=== PATIENT | female | born 1950 | race Caucasian/White ===

== ENCOUNTER → 2016-07-15 | Outpatient (CLI) | payer MEDICARE, OTHER ==
[~2016-07-15] MED LIST: ASPI-515 PO; LISI-167 PO; [UNRECOGNIZED DRUG - OTHER] PO
[2016-07-15 10:13] LABS: ASPARTATE AMINO TRANSFERASE 17 U/L (15-37); BLOOD UREA NITROGEN 14 mg/dL (7-18)
== END | disposition home or self-care (01) ==
LOC: STAR 08:28
PROVIDERS: ATTEND Orthopaedic Surgery
DX: Z01.812 Encounter for preprocedural laboratory examination (principal); M17.12 Unilateral primary osteoarthritis, left knee; M17.11 Unilateral primary osteoarthritis, right knee
CPT/HCPCS: 36415; 80053; 81003; 85025; 87081

== ENCOUNTER → 2016-07-15 | Outpatient (CLI) | payer MEDICARE, OTHER | END | disposition home or self-care (01) | LOC: LAB 09:43 | PROVIDERS: ATTEND Internal Medicine | DX: I10 Essential (primary) hypertension (principal); E03.9 Hypothyroidism, unspecified; N39.0 Urinary tract infection, site not specified; E55.9 Vitamin D deficiency, unspecified; R23.3 Spontaneous ecchymoses | CPT/HCPCS: 36415; 71020; 82043; 82306; 84439; 84443; 84480; 85610; 85730; 87086 ==

== ENCOUNTER 2016-07-20 06:21 | Inpatient (IN) | payer MEDICARE, OTHER ==
[~2016-07-20] VITALS: Ht 167.6 cm; Wt 75.7 kg
[2016-07-20] MEDS ORDERED: TRANEXAMIC ACID 100 MG/ML, 10ML ONE (06:42)
[2016-07-20] MEDS ORDERED: EPINEPHRINE 1 MG/ML, 1ML ONE (06:42)
[2016-07-20] MEDS ORDERED: ROPIvacaine/PF 0.2%, 20 ML ONE (06:42)
[2016-07-20] MEDS ORDERED: KETOROLAC 60 MG/2 ML ONE (06:42)
[2016-07-20] MEDS ORDERED: SODIUM CHLORIDE 0.9% 50 ML ONE (06:42)
[2016-07-20] MEDS ORDERED: EZET10TA3 PO (07:07)
[2016-07-20] MEDS ORDERED: TRAMADOL PO (07:07)
[2016-07-20 07:08] VITALS: BP 146/84
[2016-07-20] MEDS ORDERED: LACTATED RINGERS 1,000 ML IV SCH (07:14)
[2016-07-20] MEDS ORDERED: ROPIvacaine/PF 0.5%, 20 ML ONE (07:59)
[2016-07-20] MEDS ORDERED: MIDAZOLAM 1 MG/ML, 2ML ONE (08:03)
[2016-07-20] MEDS ORDERED: ONDANSETRON 2MG/ML, 2ML ONE (09:03)
[2016-07-20] MEDS ORDERED: CEFAZOLIN 1,000 MG ONE (09:03)
[2016-07-20] MEDS ORDERED: PROPOFOL 10 MG/ML, 50ML ONE (09:03)
[2016-07-20] MEDS ORDERED: PHENYLEPHRINE 10 MG/ML ONE (09:03)
[2016-07-20] MEDS ORDERED: DEXAMETHASONE 4 MG/ML, 1ML ONE (09:03)
[2016-07-20] MEDS ORDERED: METOCLOPRAMIDE 5 MG/ML, 2ML IV PRN (10:00)
[2016-07-20] MEDS ORDERED: ACETAMINOPHEN 325 MG TABLET PO PRN (10:00)
[2016-07-20] MEDS ORDERED: OXYcodone 5 MG/5 ML ORAL.SOL UDC PO PRN (10:00)
[2016-07-20] MEDS ORDERED: HYDROmorphone 1 MG/ML, 1ML IV PRN ×2 (10:00→11:00)
[2016-07-20] MEDS ORDERED: FENTANYL PF 100 MCG/2ML IV PRN (10:00)
[2016-07-20] MEDS ORDERED: SENNA/DOCUSATE TABLET PO PRN (11:00)
[2016-07-20] MEDS: TAMSULOSIN 0.4 MG CAP.ER.24H PO SCH (11:00)
[2016-07-20] MEDS ORDERED: PROMETHAZINE 12.5 MG SUPP PR PRN (11:00)
[2016-07-20] MEDS: OXYcodone IR 5MG TABLET PO SCH ×4 (11:00→23:00)
[2016-07-20] MEDS ORDERED: ONDANSETRON 4 MG TABLET PO PRN (11:00)
[2016-07-20] MEDS ORDERED: MAGNESIUM HYDROXIDE 8%, 30ML UDC PO PRN (11:00)
[2016-07-20] MEDS ORDERED: BISACODYL 10 MG SUPP PR PRN (11:00)
[2016-07-20] MEDS ORDERED: PROMETHAZINE 25 MG/ML, 1ML IM PRN (11:00)
[2016-07-20] MEDS ORDERED: HYDROcodone/APAP 10/325 MG TABLET PO PRN (11:00)
[2016-07-20] MEDS ORDERED: DIPHENHYDRAMINE 25 MG CAPSULE PO PRN (11:00)
[2016-07-20] MEDS ORDERED: ONDANSETRON 2MG/ML, 2ML IV PRN (11:00)
[2016-07-20] MEDS ORDERED: OXYcodone IR 5MG TABLET PO PRN (11:00)
[2016-07-20] MEDS ORDERED: ALUMINUM/MAG/SIMETHICONE 30 ML UDC PO PRN (11:00)
[2016-07-20] MEDS: ACETAMINOPHEN 650 MG/20.3 ML UDC PO SCH ×4 (11:00→23:00)
[2016-07-20] MEDS ORDERED: DIAZEPAM 5 MG TABLET PO PRN (11:00)
[2016-07-20] MEDS ORDERED: TRANEXAMIC ACID 1,000 MG in SODIUM CHLORIDE 0.9% 100 ML IVPB ONE (11:15)
[2016-07-20] MEDS ORDERED: SCOPOLAMINE PATCH, 1.5MG PATCH.TD72 TD SCH (13:00)
[2016-07-20] MEDS: D5%-0.45% NACL 1,000 ML IV SCH ×2 (13:06→18:00)
[2016-07-20 13:14] VITALS: BP 125/70
[2016-07-20] MEDS: CEFAZOLIN PMX 2GM/100ML 100 ML IVPB SCH (16:48)
[2016-07-20] MEDS: ASPIRIN 81 MG TABLET EC PO SCH (18:00)
[2016-07-20 19:00] VITALS: BP 134/72
[2016-07-20] MEDS ORDERED: ZOLPIDEM 5MG TABLET PO PRN (21:00)
[2016-07-20] MEDS ORDERED: EZETIMIBE 10 MG TABLET PO SCH (21:00)
[2016-07-20] MEDS: PREGABALIN 75 MG CAPSULE PO SCH (22:10)
[2016-07-20] MEDS: DOCUSATE 100 MG CAPSULE PO SCH (22:10)
[2016-07-21 00:03] VITALS: BP 115/64
[2016-07-21] MEDS: CEFAZOLIN PMX 2GM/100ML 100 ML IVPB SCH (00:52)
[2016-07-21] MEDS: D5%-0.45% NACL 1,000 ML IV SCH ×2 (02:44→10:44)
[2016-07-21] MEDS: OXYcodone IR 5MG TABLET PO SCH ×4 (03:00→15:00)
[2016-07-21] MEDS: ACETAMINOPHEN 650 MG/20.3 ML UDC PO SCH ×4 (03:00→15:00)
[2016-07-21] MEDS: ASPIRIN 81 MG TABLET EC PO SCH (05:58)
[2016-07-21] MEDS ORDERED: DEXAMETHASONE 4 MG/ML, 1ML IVPush SCH (06:00)
[2016-07-21] MEDS ORDERED: SODIUM CHLORIDE 0.9% 500 ML IV ONE (07:00)
[2016-07-21] MEDS: TAMSULOSIN 0.4 MG CAP.ER.24H PO SCH (08:25)
[2016-07-21] MEDS: DOCUSATE 100 MG CAPSULE PO SCH (08:25)
[2016-07-21] MEDS: LISINOPRIL 10 MG TABLET PO SCH ×2 (08:40→08:43)
[2016-07-21] MEDS: PREGABALIN 75 MG CAPSULE PO SCH (08:40)
[2016-07-21 08:41] VITALS: BP 96/70
[2016-07-21] MEDS ORDERED: MULTIVITAMINS/MINERALS TABLET PO SCH (09:00)
[2016-07-21 10:35] VITALS: BP 109/68
[2016-07-21] MEDS ORDERED: KETOROLAC 30 MG/1 ML IV SCH (11:00)
[2016-07-21 14:19] VITALS: BP 108/66
[2016-07-21 15:54] VITALS: BP 105/65
[2016-07-21] MEDS ORDERED: HYDR-3240 PO (16:33)
== END 2016-07-21 16:45 | disposition home or self-care (01) | DRG 470 ==
LOC: ORIP 06:21 → 4NOR 12:15 → DCLOUNGE 07-21 16:17
PROVIDERS: ADMIT Orthopaedic Surgery; ATTEND Orthopaedic Surgery
PROC: 5A09357 Assistance with Respiratory Ventilation, Less than 24 Consecutive Hours, Continuous Positive Airway Pressure (ICD-10-PCS; 2016-07-20)
PROC: 3E0T3CZ (ICD-10-PCS; 2016-07-20)
PROC: 0SRD0J9 Replacement of Left Knee Joint with Synthetic Substitute, Cemented, Open Approach (ICD-10-PCS; principal; 2016-07-20 09:15)
DX: M17.12 Unilateral primary osteoarthritis, left knee (principal); M81.0 Age-related osteoporosis without current pathological fracture; I25.10 Atherosclerotic heart disease of native coronary artery without angina pectoris; I10 Essential (primary) hypertension; Z72.89 Other problems related to lifestyle
CPT/HCPCS: 36415; 85014; 85018; C1713; J0171; J0690; J1100; J1885; J2250; J2405; J2704; J2795; C1776; J2370; J7040; J7120

== ENCOUNTER 2017-04-19 07:49 | Inpatient (IN) | payer MEDICARE, OTHER ==
[2017-04-12 10:38] VITALS: BP 160/95
[~2017-04-19] VITALS: Ht 167.6 cm; Wt 76.6 kg
[~2017-04-19 07:49] MED LIST changes: +ACET325T14 PO; +CALCIUM PO; +EZET10TA18 PO; +HYDR-3240 PO; +KETOROLAC 60 MG/2 ML ONE; +ROPIvacaine/PF 0.5%, 20 ML ONE; +SODIUM CHLORIDE 0.9% 100 ML ONE; +TRAMADOL PO; +TRANEXAMIC ACID 100 MG/ML, 10ML ONE; +VANCOMYCIN 1,000 MG ONE
[2017-04-19] MEDS ORDERED: LACTATED RINGERS 1,000 ML IV SCH (08:18)
[2017-04-19] MEDS ORDERED: LIDOCAINE 1%, 2ML SQ PRN (08:30)
[2017-04-19] MEDS ORDERED: LIDOCAINE 1%, 2ML ONE (08:34)
[2017-04-19] MEDS ORDERED: PROMETHAZINE 25 MG/ML, 1ML IV PRN (09:30)
[2017-04-19] MEDS ORDERED: ONDANSETRON 2MG/ML, 2ML IVPush PRN (09:30)
[2017-04-19] MEDS ORDERED: OXYcodone 5 MG/5 ML ORAL.SOL UDC PO PRN (09:30)
[2017-04-19] MEDS ORDERED: ACETAMINOPHEN 325 MG TABLET PO PRN (09:30)
[2017-04-19] MEDS ORDERED: LABETALOL 5MG/ML, 20ML IV PRN (09:30)
[2017-04-19] MEDS ORDERED: hydrALAzine 20 MG/ML, 1ML IV PRN (09:30)
[2017-04-19] MEDS ORDERED: FENTANYL PF 100 MCG/2ML IV PRN (09:30)
[2017-04-19] MEDS ORDERED: MEPERIDINE/PF 25MG/0.5ML IVPush PRN (09:30)
[2017-04-19] MEDS ORDERED: HYDROmorphone 1 MG/ML, 1ML IV PRN ×2 (09:30→10:30)
[2017-04-19] MEDS ORDERED: DEXAMETHASONE 4 MG/ML, 1ML ONE (09:33)
[2017-04-19] MEDS ORDERED: ONDANSETRON 2MG/ML, 2ML ONE (09:33)
[2017-04-19] MEDS ORDERED: PROPOFOL 50 ML ONE (09:34)
[2017-04-19] MEDS ORDERED: MIDAZOLAM 1 MG/ML, 2ML ONE (09:46)
[2017-04-19] MEDS ORDERED: FENTANYL PF 100 MCG/2ML ONE (09:46)
[2017-04-19] MEDS ORDERED: SODIUM CHLORIDE 0.9% PF 10ML ONE (09:47)
[2017-04-19] MEDS ORDERED: CEFAZOLIN 1,000 MG ONE ×2 (09:47)
[2017-04-19] MEDS ORDERED: MAGNESIUM HYDROXIDE 8%, 30ML UDC PO PRN (10:30)
[2017-04-19] MEDS: KETOROLAC 30 MG/1 ML IV SCH ×2 (10:30→15:15)
[2017-04-19] MEDS ORDERED: PROMETHAZINE 12.5 MG SUPP PR PRN (10:30)
[2017-04-19] MEDS ORDERED: ALUMINUM/MAG/SIMETHICONE 30 ML UDC PO PRN (10:30)
[2017-04-19] MEDS ORDERED: DIAZEPAM 5 MG TABLET PO PRN (10:30)
[2017-04-19] MEDS: OXYcodone IR 5MG TABLET PO SCH ×2 (10:30→14:22)
[2017-04-19] MEDS ORDERED: BISACODYL 10 MG SUPP PR PRN (10:30)
[2017-04-19] MEDS ORDERED: OXYcodone IR 5MG TABLET PO PRN (10:30)
[2017-04-19] MEDS ORDERED: ZOLPIDEM 5MG TABLET PO PRN (10:30)
[2017-04-19] MEDS ORDERED: ONDANSETRON 2MG/ML, 2ML IV PRN (10:30)
[2017-04-19] MEDS ORDERED: HYDROcodone/APAP 10/325 MG TABLET PO PRN (10:30)
[2017-04-19] MEDS ORDERED: ONDANSETRON 4 MG TABLET PO PRN (10:30)
[2017-04-19] MEDS ORDERED: PROMETHAZINE 25 MG/ML, 1ML IM PRN (10:30)
[2017-04-19] MEDS ORDERED: DIPHENHYDRAMINE 50 MG CAPSULE PO PRN (10:30)
[2017-04-19] MEDS ORDERED: SENNA/DOCUSATE TABLET PO PRN (10:30)
[2017-04-19] MEDS: ACETAMINOPHEN 650 MG/20.3 ML UDC PO SCH ×2 (10:30→16:30)
[2017-04-19] MEDS ORDERED: TRANEXAMIC ACID 1,000 MG in SODIUM CHLORIDE 0.9% 100 ML IVPB ONE (10:45)
[2017-04-19] MEDS ORDERED: ACETAMINOPHEN 650 MG/20.3 ML UDC ONE (10:51)
[2017-04-19] MEDS ORDERED: ACETAMINOPHEN 325 MG TABLET ONE (10:51)
[2017-04-19] MEDS ORDERED: OXYcodone 5 MG/5 ML ORAL.SOL UDC ONE (10:51)
[2017-04-19] MEDS: D5%-0.45% NACL 1,000 ML IV SCH ×2 (12:14→16:44)
[2017-04-19 13:25] VITALS: BP 114/64
[2017-04-19] MEDS ORDERED: CEFAZOLIN PMX 2GM/50ML 50 ML IVPB SCH (16:00)
[2017-04-19] MEDS ORDERED: OXYC5CAP2 PO (17:33)
[2017-04-19] MEDS ORDERED: ASPIRIN 81 MG TABLET EC PO SCH (18:00)
[2017-04-19] MEDS ORDERED: EZETIMIBE 10 MG TABLET PO SCH (21:00)
[2017-04-19] MEDS ORDERED: DOCUSATE 100 MG CAPSULE PO SCH (21:00)
[2017-04-20] MEDS ORDERED: DEXAMETHASONE 4 MG/ML, 1ML IVPush SCH (06:00)
[2017-04-20] MEDS ORDERED: MULTIVITAMINS/MINERALS TABLET PO SCH (09:00)
[2017-04-20] MEDS ORDERED: LISINOPRIL 10 MG TABLET PO SCH (09:00)
== END 2017-04-19 18:28 | disposition home or self-care (01) | DRG 470 ==
LOC: ORIP 07:49 → 4NOR 11:43
PROVIDERS: ADMIT Orthopaedic Surgery; ATTEND Orthopaedic Surgery
PROC: 0SRC0J9 Replacement of Right Knee Joint with Synthetic Substitute, Cemented, Open Approach (ICD-10-PCS; principal; 2017-04-19 11:00)
DX: M17.11 Unilateral primary osteoarthritis, right knee (principal); I10 Essential (primary) hypertension; M21.161 Varus deformity, not elsewhere classified, right knee; Z96.652 Presence of left artificial knee joint; Z79.82 Long term (current) use of aspirin
CPT/HCPCS: C1713; J0690; J1100; J1885; J2250; J2405; J2704; J2795; J3010; J3370; J3490; C1776; J7120